=== PATIENT | female | born 1950 | race Caucasian/White ===

== ENCOUNTER 2016-11-07 23:43 | Inpatient (IN) | payer MEDICARE, OTHER ==
--- NOTE | 2016-11-07 23:55 | ED Physician Chart ---
Chief Complaint/HPI - Patient Information Date Seen:: 11/07/16 Time Seen:: 23:50 Chief Complaint:: agression History of Present Illness:: OR pt of Dr Carbone sent over for Dr Gallardo to admit medically for concern of Alteration in mental status and increased agitation and combative and ceaseless pacing at OR. no known recent fever or illness. no acute pain. no trauma recently. dementia pt. ...pt cant provide med history. pt was given 2mg ativan at 7;45 without much improvement Allergies:: Allergies Allergy/AdvReac Type Severity Reaction Status Date / Time No Known Allergies Allergy Verified 08/29/16 13:45 Historian:: Patient, Medical Records Review:: Transfer documents Reviewed Review of Systems - Review of Systems General/Constitutional: No fever, No chills, No weight loss, No weakness, No diaphoresis, No edema, No loss of appetite Skin: No skin lesions, No rash, No bruising Head: No headache, No light-headedness Eyes: No loss of vision, No pain, No diplopia ENT: No earache, No nasal drainage, No sore throat, No tinnitus Neck: No neck pain, No swelling, No thyromegaly, No stiffness, No mass noted Cardio Vascular: No chest pain, No palpitations, No PND, No orthopnea, No edema Pulmonary: No SOB, No cough, No sputum, No wheezing GI: No nausea, No vomiting, No diarrhea, No pain, No melena, No hematochezia, No constipation, No hematemesis G/U: No dysuria, No frequency, No hematuria Musculoskeletal: No bone or joint pain, No back pain, No muscle pain Endocrine: No polyuria, No polydipsia Psychiatric: Prior psych history, No depression, Anxiety, No suicidal ideation, Other (agitation) Hematopoietic: No bruising, No lymphadenopathy Allergic/Immuno: No urticaria, No angioedema Neurological: No syncope, No focal symptoms, No weakness, No paresthesia, No headache, No seizure, No dizziness, No confusion, No vertigo Past Medical History - Past Medical History Past Medical History: HTN, Asthma/COPD, Arthritis, Dementia, Other (anemia, dysphagia, constipation) Social History: Care Facility Medication: Reviewed Family Medical History - Family Member Sister History Unknown: Yes Physical Exam - Physical Examination General/Constitutional: Awake, Well-developed, well-nourished, Alert, No distress, Non-toxic appearing, Ambulatory Other Gen/Cons comments:: thin female..seems agitated/jumpy. has trouble staying still. pt seems threatening during exam. wn/wh. alert. poor historian. Head: Atraumatic Eyes: Lids, conjuctiva normal, PERRL, EOMI Skin: Nl inspection, No rash, No skin lesions, No ecchymosis, Well hydrated, No lymphadenopathy ENMT: External ears, nose nl, Nasal exam nl, Lips, teeth, gums nl Neck: Nontender, Full ROM w/o pain, No JVD, No nuchal rigidity, No bruit, No mass, No stridor Respiratory: Nl effort/Exclusion, Clear to Auscultation, No Wheeze/Rhonchi/Rales Cardio Vascular: RRR, No murmur, gallop, rubs, NL S1 S2 GI: No tenderness/rebounding/guarding, No organomegaly, No hernia, Normal BS's, Nondistended, No mass/bruits, No McBurney tenderness : No CVA tenderness Extremities: No tenderness or effusion, Full ROM, normal strength in all extremities, No edema, Normal digits & nails Neuro/Psych: Alert/oriented, DTR's symmetric, Normal sensory exam, Normal motor strength, Normal gait, No focal deficits Misc: normal gait, Normal back, No paraspinal tenderness ED Septic Shock - . Is Septic Shock (SBP<90, OR Lactate>4 mmol\L) present?: No Reassessment (Disposition) - Reassessment Reassessment:: pt is currently refusing to allow lab draw and studies to be performed. case dw Dr Gallardo who is admitting for alt loc. Reassessment Condition:: Unchanged - Diagnosis Diagnosis:: aloc difficult aggressive behavior - Patient Disposition Admitted to:: Med/Surg Condition at Disposition:: Unchanged
[2016-11-08] MEDS ORDERED: Albuterol/Ipratropium Neb 3 ML AERS HHN PRN (00:13)
[2016-11-08] MEDS ORDERED: guaiFENesin 200 MG/10 ML UDC PO PRN (00:13)
[2016-11-08] MEDS ORDERED: Maalox 30 mL Cup PO PRN ×2 (00:16→10:23)
[2016-11-08] MEDS: D5-0.45NS 1,000 ML IV SCH ×2 (01:00→11:34)
[2016-11-08 03:32] VITALS: BP 105/51
[2016-11-08] MEDS ORDERED: Maalox 30 mL Cup PO SCH (06:00)
[2016-11-08] MEDS ORDERED: VTE Chemical Prophylaxis Screen/Admission MC PRN (11:00)
[2016-11-08 15:31] LABS: % BASOPHILS 0.8 % (0.0-2.0); % EOSINOPHILS 2.7 % (0.0-5.0); % LYMPHOCYTES 27.1 % (20.0-50.0); % MONOCYTES 8.5 % (2.0-10.0); % NEUTROPHILS 60.9 % (40.0-80.0); HEMOGLOBIN 11.3 gm/dL (11.7-15.5); MEAN CORPUSCULAR HEMOGLOBIN 27.6 pg (27.0-31.0); MEAN CORPUSCULAR HGB CONC 33.2 pg (28.0-36.0); MEAN PLATELET VOLUME 8.3 fl; PLATELET COUNT 277 Th/cmm (150-400); RED CELL DISTRIBUTION WIDTH 16.5 % (11.5-20.0)
[2016-11-08 15:32] LABS: WHITE BLOOD COUNT 8.2 Th/cmm (4.8-10.8)
[2016-11-08 15:41] LABS: ALKALINE PHOSPHATASE 41 U/L (34-104); ANION GAP 0.8 (7.0-16.0); BILIRUBIN,TOTAL 0.2 mg/dL (0.3-1.0); BUN - UREA NITROGEN 24 mg/dL (7-25); CALCIUM SERUM 8.7 mg/dL (8.6-10.3); CARBON DIOXIDE 27.9 mEq/L (21.0-31.0); CHLORIDE 109 mEq/L (98-107); CHOLESTEROL 130 mg/dL (<200); CREATININE - SERUM 0.5 mg/dL (0.6-1.2); GLUCOSE 84 mg/dL (70-105); POTASSIUM SERUM 3.7 mEq/L (3.5-5.1); SGOT 19 U/L (13-39); SGPT/ALT 7 U/L (7-52); SODIUM SERUM 134 mEq/L (136-145); TRIGLYCERIDES 58 mg/dL (<150)
--- NOTE | 2016-11-08 16:38 | Internal Medicine Prog Note ---
Internal Medicine Subjective - Subjective Service Date: 11/08/16 ([facility] [id number]) Internal Medicine Objective - Results Result Diagrams: 11/08/16 15:08 11/08/16 15:08 Recent Labs: Laboratory Last Values WBC 8.2 Th/cmm (4.8-10.8) D 11/08/16 15:08 RBC 4.10 Mil/cmm (3.80-5.10) 11/08/16 15:08 Hgb 11.3 gm/dL (11.7-15.5) L 11/08/16 15:08 Hct 34.0 % (35.0-45.0) L D 11/08/16 15:08 MCV 83.0 fl (81-100) 11/08/16 15:08 MCH 27.6 pg (27.0-31.0) 11/08/16 15:08 MCHC Differential 33.2 pg (28.0-36.0) 11/08/16 15:08 RDW 16.5 % (11.5-20.0) 11/08/16 15:08 Plt Count 277 Th/cmm (150-400) 11/08/16 15:08 MPV 8.3 fl 11/08/16 15:08 Neutrophils % 60.9 % (40.0-80.0) 11/08/16 15:08 Lymphocytes % 27.1 % (20.0-50.0) 11/08/16 15:08 Monocytes % 8.5 % (2.0-10.0) 11/08/16 15:08 Eosinophils % 2.7 % (0.0-5.0) 11/08/16 15:08 Basophils % 0.8 % (0.0-2.0) 11/08/16 15:08 Sodium 134 mEq/L (136-145) L 11/08/16 15:08 Potassium 3.7 mEq/L (3.5-5.1) 11/08/16 15:08 Chloride 109 mEq/L (98-107) H 11/08/16 15:08 Carbon Dioxide 27.9 mEq/L (21.0-31.0) 11/08/16 15:08 Anion Gap 0.8 (7.0-16.0) L 11/08/16 15:08 BUN 24 mg/dL (7-25) 11/08/16 15:08 Creatinine 0.5 mg/dL (0.6-1.2) L 11/08/16 15:08 Est GFR ( Amer) > 60.0 ml/min 11/08/16 15:08 Est GFR (Non-Af Amer) > 60.0 ml/min 11/08/16 15:08 BUN/Creatinine Ratio 48.0 11/08/16 15:08 Glucose 84 mg/dL (70-105) 11/08/16 15:08 Calcium 8.7 mg/dL (8.6-10.3) 11/08/16 15:08 Total Bilirubin 0.2 mg/dL (0.3-1.0) L 11/08/16 15:08 AST 19 U/L (13-39) 11/08/16 15:08 ALT 7 U/L (7-52) 11/08/16 15:08 Alkaline Phosphatase 41 U/L (34-104) 11/08/16 15:08 Total Protein 6.6 gm/dL (6.0-8.3) 11/08/16 15:08 Albumin 3.3 gm/dL (3.7-5.3) L 11/08/16 15:08 Globulin 3.3 gm/dL 11/08/16 15:08 Albumin/Globulin Ratio 1.0 (1.0-1.8) 11/08/16 15:08 Triglycerides 58 mg/dL (<150) 11/08/16 15:08 Cholesterol 130 mg/dL (<200) 11/08/16 15:08 LDL Cholesterol Direct 64 mg/dL (75-193) L 11/08/16 15:08 HDL Cholesterol 53 mg/dL (23-92) 11/08/16 15:08 TSH 0.78 uIU/ml (0.34-5.60) 11/08/16 15:08 - Physical Exam Vitals and I&O: Vital Signs Temp 98.0 F 11/08/16 01:30 Pulse 91 11/08/16 01:30 Resp 18 11/08/16 01:30 BP 105/51 11/08/16 03:31 Pulse Ox 95 11/08/16 01:30 Intake & Output 11/07/16 11/08/16 11/08/16 18:59 06:59 18:59 Weight (lbs) 141 lb 9.6 oz Active Medications: Current Medications Acetaminophen (Tylenol) 325 mg PO Q6HR PRN PRN Reason: Pain (Mild) Stop: 01/07/17 00:12 Al Hydrox/Mg Hydrox/Simethicone (Maalox) 30 ml PO Q6HR PRN PRN Reason: Abdominal Cramping Stop: 01/07/17 05:59 Albuterol/Ipratropium (Duoneb Neb) 3 ml HHN Q2HR PRN PRN Reason: Shortness of Breath Stop: 01/07/17 00:12 Divalproex Sodium (Depakote Sprinkle) 125 mg PO Q12HR KRAIG PRN Reason: Protocol Stop: 01/07/17 20:59 Guaifenesin (Robitussin) 100 mg PO Q4HR PRN PRN Reason: Cough Stop: 01/07/17 00:12 Lorazepam (Ativan) 1 mg PO BID PRN; Protocol PRN Reason: Anxiety Stop: 01/07/17 00:12 Last Admin: 11/08/16 13:00 Dose: 1 mg Quetiapine Fumarate (Seroquel) 25 mg PO BID KRAIG PRN Reason: Protocol Stop: 01/07/17 08:59 Last Admin: 11/08/16 13:00 Dose: 25 mg Zolpidem Tartrate (Ambien) 10 mg PO HS PRN PRN Reason: Insomnia Stop: 01/07/17 00:33 Internal Medicine Assmt/Plan - Assessment Assessment: increasing ALOC, increasing agitation
--- NOTE | 2016-11-08 18:28 | History & Physical ---
CHIEF COMPLAINT: Aggression. HISTORY OF PRESENT ILLNESS: This is a 66-year-old -[place] female who is a resident of [facility] who was brought here to [facility] for alteration in mental status and increased agitation and combativeness. The patient appeared to be medically clear. Upon examination, the patient is a poor historian, does not cooperate and answering questions. The patient is medically clear. The patient to be transferred to the Geropsych Unit. PAST MEDICAL HISTORY: Hypertension, asthma, arthritis, dementia. SOCIAL HISTORY: The patient resides at a senior care, requiring 24-hour nursing care. FAMILY HISTORY: Noncontributory. ALLERGIES: No drug allergies. REVIEW OF SYSTEMS: Unable to obtain, patient is uncooperative. PHYSICAL EXAMINATION: GENERAL: The patient is well developed, well nourished, in no apparent distress. VITAL SIGNS: Temperature 98.0, heart rate 91, blood pressure 105/51, respirations 18, O2 95%. HEENT: Normocephalic and atraumatic. NECK: Supple. No mass. LUNGS: Clear bilaterally upon auscultation. CARDIOVASCULAR: Regular rate and rhythm. No murmurs or gallops. SKIN: Intact, warm and dry to touch. ABDOMEN: Soft, nontender, nondistended. Positive bowel sounds in all 4 quadrants. LABORATORY DATA: WBC 8.2, H and H 11.3 and 34.0. Sodium 134, potassium 3.7, chloride 109, BUN 24, creatinine 0.5. ASSESSMENT: Increasing ALOC, increasing agitation, hyponatremia. PLAN: The patient is medically stable to be transferred to the Geropsych Unit. JOB# [id number]
--- NOTE | 2016-11-08 21:35 | Consultation ---
The patient was seen, chart reviewed, and discussed with staff. HISTORY OF PRESENT ILLNESS: The patient is a 66-year-old female with a history of chronic mental illness known to myself from treatment at the facility, now admitted to medical floor, has been restless, anxious, and agitated, talking to herself nonstop. The patient has been more confused. Mental status has been altered and changed from her baseline. PAST PSYCHIATRIC HISTORY: Chronic history of mental illness and schizoaffective disorder. PAST MEDICAL HISTORY: As per H and P. PSYCHOSOCIAL HISTORY: The patient resides at a senior living facility, requires complete care. MENTAL STATUS EXAMINATION: The patient was restless, internally preoccupied, oriented to person, not sure if she is oriented to place and she is not oriented to time. The patient is talking to herself nonstop. Her agitation is high. Insight is poor and judgment is impaired. ASSESSMENT: Schizoaffective disorder, psychotic phase. PLAN: We will add Depakote 125 mg p.o. b.i.d. We will continue Seroquel 25 mg p.o. b.i.d. The patient would benefit from psychiatric hospitalization given her agitation once medically cleared. Thank you for the consultation. JOB# [id number]
--- NOTE | 2016-11-08 23:50 | Admit Criteria Form ---
Admit Criteria Forms - Admit Criteria Diagnosis: HYPONATREMIA; HYPERNATREMIA; HYPOKALEMIA; HYPERKALEMIA; HYPOCALCEMIA; HYPERCALCEMIA Clinical Indications for Inpatient Care (Place 'X' for any and all applicable criteria): Ongoing inpatient care may be indicated for ANY ONE of the following [G](1)(2)(3 )(5): [X ]I. Hyponatremia with ANY ONE of the following: [ ]a) Sodium less than 130 mEq/L (mmol/L) (new) (6)(22) [ X]b) Sodium less than 135 mEq/L (mmol/L) with ANY ONE of the following: [ ]i) Severe medical etiology requiring inpatient management (eg, heart failure, hypovolemia) [X ]ii) Altered mental status [ ]iii) Seizures [ ]II. Hypernatremia with ANY ONE of the following: [ ]a) Sodium greater than 155 mEq/L (mmol/L) [ ]b) Sodium greater than 150 mEq/L (mmol/L) with ANY ONE of the following: [ ] i) Altered mental status [ ]ii) Seizures [ ]iii) Severe medical etiology (eg, hypovolemia, diabetes insipidus) [ ]iv) Severe weakness [ ]v) Severe medical etiology (eg, hemolysis, infection, drug overdose) [ ]III. Hypokalemia with ANY ONE of the following: [ ]a) Potassium less than 2.5 mEq/L (mmol/L) despite outpatient and emergency treatment [ ]b) Potassium less than 3.0 mEq/L (mmol/L) with ANY ONE of the following: [ ]i) Weakness [ ]ii) Cardiac abnormality (eg, arrhythmia, conduction disturbance) [ ]iii) Cardiac ischemia [ ]iv) Ileus [ ]v) Ongoing medical cause requiring inpatient management. ( e.g., acute renal wasting, SIADH) [ ]vi) Other severe symptoms [ ] IV. Hyperkalemia with ANY ONE of the following: [ ]a) Potassium greater than 6.5 mEq/L (mmol/L) [ ]b) Potassium greater than 5 mEq/L (mmol/L) with ANY ONE of the following: [ ]i) Severe ECG findings [H] [ ]ii) Acute worsening of renal failure (creatinine greater than 2.5 mg/dL (221 micromoles/L) or significant elevation for age and size) [ ] V. Hypocalcemia with ANY ONE of the following: [ ]a) Calcium less than 7 mg/dL (1.75 mmol/L) despite outpatient and emergency treatment(19) [ ]b) Calcium less than 8 mg/dL (2 mmol/L) with significant symptoms or findings; examples include: [ ]i) Cardiac abnormality (eg, arrhythmia or conduction disturbance) [ ]ii) Altered mental status [ ]iii) Seizures [ ]iv) Breathing difficulty [ ]v) Muscle spasms [ ]. Hypercalcemia with ANY ONE of the following: [ ]a) Calcium greater than 14 mg/dL (3.5 mmol/L) [ ]b) Calcium greater than 12 mg/dL (3 mmol/L) with ANY ONE of the following: [ ]i) Significant dehydration or hypovolemia as indicated by ANY ONE of the following(2): [ ]1. Clinically significant dehydration as indicated by ANY ONE of the following: [ ]A. Acute loss of weight from baseline (5% of body weight in adults, 9% in pediatric patients) [ ]B. Hemodynamic instability [ ]C. Acute renal failure [ ]D. Serum sodium greater than 150 mEq/L (mmol/L) [ ]2) Dehydration that is persistent indicated by ALL of the following: [ ]A. Oral rehydration therapy not tolerated or insufficient to adequately correct dehydration [ ]B. Appropriate intravenous treatment (eg, fluids ) does not readily correct dehydration ie, after 12 to 24 hours of treatment) [ ]ii) Significant symptoms or findings; examples include: [ ]1) Altered mental status [ ]2) Cardiac abnormality (eg, arrhythmia, conduction disturbance) [ ]3) Cardiac abnormality (eg, arrhythmia, conduction disturbance) The original [employer] content created by [employer] has been revised. The portions of the content which have been revised are identified through the use of italic text or in bold, and [facility] has neither reviewed nor approved the modified material. All other unmodified content is copyright [facility] [employer] Please see references footnoted in the original [employer] edition 2016 Admit Criteria Met?: Yes
[2016-11-09] MEDS ORDERED: Haloperidol Lactate 5 mg/mL 1mL Vial IM PRN (09:54)
[2016-11-09 12:15] LABS: HEP B CORE IGM Negative (Negative); HEP C ANTIBODY <0.1 s/co ratio (0.0-0.9)
--- NOTE | 2016-11-09 12:55 | Internal Medicine Prog Note ---
Internal Medicine Subjective - Subjective Service Date: 11/09/16 Patient seen and examined:: with staff Patient is:: awake Per staff patient is:: no adverse event Internal Medicine Objective - Results Result Diagrams: 11/08/16 15:08 11/08/16 15:08 Recent Labs: Laboratory Last Values WBC 8.2 Th/cmm (4.8-10.8) D 11/08/16 15:08 RBC 4.10 Mil/cmm (3.80-5.10) 11/08/16 15:08 Hgb 11.3 gm/dL (11.7-15.5) L 11/08/16 15:08 Hct 34.0 % (35.0-45.0) L D 11/08/16 15:08 MCV 83.0 fl (81-100) 11/08/16 15:08 MCH 27.6 pg (27.0-31.0) 11/08/16 15:08 MCHC Differential 33.2 pg (28.0-36.0) 11/08/16 15:08 RDW 16.5 % (11.5-20.0) 11/08/16 15:08 Plt Count 277 Th/cmm (150-400) 11/08/16 15:08 MPV 8.3 fl 11/08/16 15:08 Neutrophils % 60.9 % (40.0-80.0) 11/08/16 15:08 Lymphocytes % 27.1 % (20.0-50.0) 11/08/16 15:08 Monocytes % 8.5 % (2.0-10.0) 11/08/16 15:08 Eosinophils % 2.7 % (0.0-5.0) 11/08/16 15:08 Basophils % 0.8 % (0.0-2.0) 11/08/16 15:08 Sodium 134 mEq/L (136-145) L 11/08/16 15:08 Potassium 3.7 mEq/L (3.5-5.1) 11/08/16 15:08 Chloride 109 mEq/L (98-107) H 11/08/16 15:08 Carbon Dioxide 27.9 mEq/L (21.0-31.0) 11/08/16 15:08 Anion Gap 0.8 (7.0-16.0) L 11/08/16 15:08 BUN 24 mg/dL (7-25) 11/08/16 15:08 Creatinine 0.5 mg/dL (0.6-1.2) L 11/08/16 15:08 Est GFR ( Amer) > 60.0 ml/min 11/08/16 15:08 Est GFR (Non-Af Amer) > 60.0 ml/min 11/08/16 15:08 BUN/Creatinine Ratio 48.0 11/08/16 15:08 Glucose 84 mg/dL (70-105) 11/08/16 15:08 Calcium 8.7 mg/dL (8.6-10.3) 11/08/16 15:08 Total Bilirubin 0.2 mg/dL (0.3-1.0) L 11/08/16 15:08 AST 19 U/L (13-39) 11/08/16 15:08 ALT 7 U/L (7-52) 11/08/16 15:08 Alkaline Phosphatase 41 U/L (34-104) 11/08/16 15:08 Total Protein 6.6 gm/dL (6.0-8.3) 11/08/16 15:08 Albumin 3.3 gm/dL (3.7-5.3) L 11/08/16 15:08 Globulin 3.3 gm/dL 11/08/16 15:08 Albumin/Globulin Ratio 1.0 (1.0-1.8) 11/08/16 15:08 Triglycerides 58 mg/dL (<150) 11/08/16 15:08 Cholesterol 130 mg/dL (<200) 11/08/16 15:08 LDL Cholesterol Direct 64 mg/dL (75-193) L 11/08/16 15:08 HDL Cholesterol 53 mg/dL (23-92) 11/08/16 15:08 TSH 0.78 uIU/ml (0.34-5.60) 11/08/16 15:08 RPR NONREACTIVE (NONREACTIVE) 11/08/16 15:08 Hepatitis A IgM Ab Negative (Negative) 11/08/16 15:08 Hep Bs Antigen Negative (Negative) 11/08/16 15:08 Hep B Core IgM Ab Negative (Negative) 11/08/16 15:08 Hepatitis C Antibody <0.1 s/co ratio (0.0-0.9) 11/08/16 15:08 - Physical Exam Vitals and I&O: Vital Signs Temp 98.0 F 11/08/16 01:30 Pulse 91 11/08/16 01:30 Resp 20 11/09/16 08:00 BP 105/51 11/08/16 03:31 Pulse Ox 95 11/08/16 01:30 Intake & Output 11/08/16 11/09/16 11/09/16 18:59 06:59 18:59 Intake Total 920 Balance 920 Intake: Oral 920 Other: # Voids 2 # Bowel Movements 0 Active Medications: Current Medications Acetaminophen (Tylenol) 325 mg PO Q6HR PRN PRN Reason: Pain (Mild) Stop: 01/07/17 00:12 Last Admin: 11/09/16 02:46 Dose: 325 mg Al Hydrox/Mg Hydrox/Simethicone (Maalox) 30 ml PO Q6HR PRN PRN Reason: Abdominal Cramping Stop: 01/07/17 05:59 Albuterol/Ipratropium (Duoneb Neb) 3 ml HHN Q2HR PRN PRN Reason: Shortness of Breath Stop: 01/07/17 00:12 Divalproex Sodium (Depakote Sprinkle) 125 mg PO Q12HR [facility] PRN Reason: Protocol Stop: 01/07/17 20:59 Last Admin: 11/09/16 09:09 Dose: Not Given Guaifenesin (Robitussin) 100 mg PO Q4HR PRN PRN Reason: Cough Stop: 01/07/17 00:12 Haloperidol Lactate (Haldol) 5 mg IM NOW PRN PRN Reason: Agitation Stop: 01/08/17 09:53 Last Admin: 11/09/16 10:30 Dose: 5 mg Lorazepam (Ativan) 1 mg PO BID PRN; Protocol PRN Reason: Anxiety Stop: 01/07/17 00:12 Last Admin: 11/08/16 20:57 Dose: 1 mg Lorazepam (Ativan) 1 mg PO Q6HR PRN; Protocol PRN Reason: Agitation Stop: 01/08/17 03:36 Last Admin: 11/09/16 04:18 Dose: 1 mg Quetiapine Fumarate (Seroquel) 50 mg PO BID [facility] PRN Reason: Protocol Stop: 01/08/17 12:15 Zolpidem Tartrate (Ambien) 10 mg PO HS PRN PRN Reason: Insomnia Stop: 01/07/17 00:33 Last Admin: 11/08/16 20:57 Dose: 10 mg General: alert HEENT: NC/AT, PERRLA Neck: Supple Lungs: CTAB Cardiovascular: RRR, Normal S1, Normal S2, without murmur Abdomen: soft non-tender, non-distended, positive bowel sound Neurological: no change Internal Medicine Assmt/Plan - Assessment Assessment: increasing ALOC increasing agitation - Plan Plan: awaiting for bed availability in [facility] psych
== END 2016-11-09 15:38 | DRG 641 ==
LOC: ER 23:43 → MSI 11-08 00:05
PROVIDERS: ADMIT Internal Medicine; ATTEND Internal Medicine
DX: E87.1 Hypo-osmolality and hyponatremia (principal); F03.90 Unspecified dementia, unspecified severity, without behavioral disturbance, psychotic disturbance, mood disturbance, and anxiety; R13.10 Dysphagia, unspecified; I10 Essential (primary) hypertension; J45.909 Unspecified asthma, uncomplicated; M19.90 Unspecified osteoarthritis, unspecified site; F25.9 Schizoaffective disorder, unspecified
CPT/HCPCS: 36415-UA; 80053-TC; 80061-TC; 80074-90; 84443-TC; 85025-TC; 86592-TC; 93005; J1200; J1630; J2060; Z7610

== ENCOUNTER 2016-11-09 15:38 | Inpatient (IN) | payer MEDICARE, OTHER ==
[2016-11-09 20:13] VITALS: BP 105/51
[2016-11-09] MEDS ORDERED: guaiFENesin 200 MG/10 ML UDC PO PRN ×2 (21:18→21:22)
[2016-11-09] MEDS ORDERED: Albuterol/Ipratropium Neb 3 ML AERS HHN PRN (21:18)
[2016-11-09] MEDS ORDERED: Magnesium Hydroxide (MOM) 30 mL UDC PO PRN (21:22)
[2016-11-09] MEDS ORDERED: Maalox 30 mL Cup PO PRN (21:22)
[2016-11-10] MEDS ORDERED: Maalox 30 mL Cup PO SCH
[2016-11-10] MEDS: Multivitamin Tab PO SCH (08:02)
--- NOTE | 2016-11-10 11:16 | Internal Medicine Prog Note ---
Internal Medicine Subjective - Subjective Patient seen and examined:: with staff, chart reviewed Patient is:: awake, interactive Per staff patient is:: no adverse event, noncompliant, confused Internal Medicine Objective - Physical Exam Vitals and I&O: Vital Signs Temp Pulse Resp BP 105/51 11/09/16 21:00 Pulse Ox Active Medications: Current Medications Acetaminophen (Tylenol) 650 mg PO Q4HR PRN PRN Reason: Pain (Mild) Stop: 01/08/17 21:21 Al Hydrox/Mg Hydrox/Simethicone (Maalox) 30 ml PO Q6HR PRN PRN Reason: Constipation Stop: 01/08/17 21:21 Albuterol/Ipratropium (Duoneb Neb) 3 ml HHN Q2HR PRN PRN Reason: Shortness of Breath Stop: 01/08/17 21:17 Guaifenesin (Robitussin) 200 mg PO Q4HR PRN PRN Reason: Cough or Congestion Stop: 01/08/17 21:21 Lorazepam (Ativan) 1 mg PO BID PRN; Protocol PRN Reason: Anxiety Stop: 01/08/17 21:17 Multivitamins/Vitamin C (Theragran) 1 tab PO DAILY [facility]RAIG Stop: 01/09/17 08:59 Last Admin: 11/10/16 08:02 Dose: Not Given Quetiapine Fumarate (Seroquel) 25 mg PO BID [facility] PRN Reason: Protocol Stop: 01/09/17 08:59 Last Admin: 11/10/16 08:02 Dose: Not Given Zolpidem Tartrate (Ambien) 10 mg PO HS PRN PRN Reason: Insomnia General: demented HEENT: NC/AT, PERRLA Neck: Supple, No JVD Lungs: CTAB Cardiovascular: RRR, Normal S1, Normal S2 Abdomen: soft non-tender, globular Extremities: excoriation Neurological: no change Internal Medicine Assmt/Plan - Assessment Assessment: inc agitation anemia sad hyponatremia' low albumin - Plan Plan: nutritional support correct lyrtes will check labs jordi blum
--- NOTE | 2016-11-10 23:31 | Psychosocial Evaluation ---
CHIEF COMPLAINT: "I am fine". HISTORY OF PRESENT ILLNESS: The patient is a 66-year-old female with a history of chronic mental illness ____ angry and irritable, sent from senior living to this facility with altered level of consciousness, was on medical floor, now transferred to [facility]. The patient has been restless and angry and was screaming nonstop. The patient is a very poor historian. The patient required being given emergency medications and her Seroquel was just increased to 50 mg p.o. b.i.d. PAST PSYCHIATRIC HISTORY: Multiple psychiatric hospitalization and chronic history of schizoaffective disorder. PAST MEDICAL HISTORY: Refer to H and P. PSYCHOSOCIAL HISTORY: The patient resides at [facility] and she requires complete care. MENTAL STATUS EXAMINATION: The patient has been internally preoccupied because is having episodes of ____ around and difficult to comprehend. She is oriented to person. She is not oriented to time or place. The patient is forgetful and confused. The patient's insight is poor and judgment is impaired. The patient appears to be responding to internal stimuli and actively hallucinating. THE PATIENT'S STRENGTH: The patient is passively accepting treatment and medication. THE PATIENT'S WEAKNESS: Lack of insight. ASSESSMENT: Schizoaffective disorder, psychotic phase, rule out dementia Alzheimer's type. Medical, as per medical history. PLAN: We will admit the patient for hospitalization. We will start individual and group therapy. Assess psychopharmacological intervention. ESTIMATED LENGTH OF STAY: Seven days. CRITERIA FOR DISCHARGE: Improved condition. No agitation, no aggressive behavior, safe disposition and outpatient treatment plan. JOB# [id number]
--- NOTE | 2016-11-11 12:12 | Internal Medicine Prog Note ---
Internal Medicine Subjective - Subjective Patient seen and examined:: with staff, chart reviewed Patient is:: interactive Per staff patient is:: no adverse event, noncompliant, confused Internal Medicine Objective - Physical Exam Vitals and I&O: Vital Signs Temp 97.9 F 11/10/16 15:44 Pulse 108 11/10/16 15:44 Resp 18 11/10/16 15:44 BP 128/68 11/10/16 15:44 Pulse Ox 97 11/10/16 15:44 Intake & Output 11/10/16 11/11/16 11/11/16 18:59 06:59 18:59 Intake Total 760 240 Balance 760 240 Intake: Oral 760 240 Other: # Voids 2 1 # Bowel Movements 1 Stool Characteristics Soft Soft Formed Formed Active Medications: Current Medications Acetaminophen (Tylenol) 650 mg PO Q4HR PRN PRN Reason: Pain (Mild) Stop: 01/08/17 21:21 Al Hydrox/Mg Hydrox/Simethicone (Maalox) 30 ml PO Q6HR PRN PRN Reason: Constipation Stop: 01/08/17 21:21 Albuterol/Ipratropium (Duoneb Neb) 3 ml HHN Q2HR PRN PRN Reason: Shortness of Breath Stop: 01/08/17 21:17 Guaifenesin (Robitussin) 200 mg PO Q4HR PRN PRN Reason: Cough or Congestion Stop: 01/08/17 21:21 Lorazepam (Ativan) 1 mg PO BID PRN; Protocol PRN Reason: Anxiety Stop: 01/08/17 21:17 Multivitamins/Vitamin C (Theragran) 1 tab PO DAILY KRAIG Stop: 01/09/17 08:59 Last Admin: 11/10/16 08:02 Dose: Not Given Quetiapine Fumarate (Seroquel) 25 mg PO BID [facility] PRN Reason: Protocol Stop: 01/09/17 08:59 Last Admin: 11/10/16 16:30 Dose: Not Given Zolpidem Tartrate (Ambien) 10 mg PO HS PRN PRN Reason: Insomnia General: demented HEENT: NC/AT, PERRLA Neck: Supple, No JVD Lungs: CTAB Cardiovascular: RRR, Normal S1, Normal S2 Abdomen: soft non-tender, non-distended Extremities: excoriation Neurological: no change Internal Medicine Assmt/Plan - Assessment Assessment: inc agitation anemia sad hyponatremia' low albumin - Plan Plan: nutritional support correct lyrtes will check labs jordi blum
[2016-11-11] MEDS: Multivitamin Tab PO SCH (16:47)
--- NOTE | 2016-11-11 23:24 | Progress Notes ---
SUBJECTIVE: The patient was seen, discussed with staff. Less yelling, less irritable today. Actually, she was sitting in her wheelchair and she was wheeling herself around the unit. The patient, however, continues to have episodes where she is talking to herself. The patient is still with episodes of agitation. ASSESSMENT: The patient continues to require hospitalization. PLAN: We will continue to monitor closely, continue supportive measures. [facility]# [id number]
--- NOTE | 2016-11-12 13:38 | Internal Medicine Prog Note ---
Internal Medicine Subjective - Subjective Service Date: 11/12/16 Patient seen and examined:: with staff Patient is:: awake Per staff patient is:: no adverse event Internal Medicine Objective - Physical Exam Vitals and I&O: Vital Signs Temp 0 F 11/12/16 06:07 Pulse 108 11/10/16 15:44 Resp 18 11/10/16 15:44 BP 128/68 11/10/16 15:44 Pulse Ox 97 11/10/16 15:44 Intake & Output 11/11/16 11/12/16 11/12/16 18:59 06:59 18:59 Intake Total 800 240 Balance 800 240 Intake: Oral 800 240 Other: # Voids 3 3 # Bowel Movements 1 0 Stool Characteristics Soft Soft Soft Formed Formed Formed Active Medications: Current Medications Acetaminophen (Tylenol) 650 mg PO Q4HR PRN PRN Reason: Pain (Mild) Stop: 01/08/17 21:21 Al Hydrox/Mg Hydrox/Simethicone (Maalox) 30 ml PO Q6HR PRN PRN Reason: Constipation Stop: 01/08/17 21:21 Albuterol/Ipratropium (Duoneb Neb) 3 ml HHN Q2HR PRN PRN Reason: Shortness of Breath Stop: 01/08/17 21:17 Guaifenesin (Robitussin) 200 mg PO Q4HR PRN PRN Reason: Cough or Congestion Stop: 01/08/17 21:21 Lorazepam (Ativan) 1 mg PO BID PRN; Protocol PRN Reason: Anxiety Stop: 01/08/17 21:17 Multivitamins/Vitamin C (Theragran) 1 tab PO DAILY KRAIG Stop: 01/09/17 08:59 Last Admin: 11/11/16 16:47 Dose: Not Given Quetiapine Fumarate (Seroquel) 25 mg PO BID KRAIG PRN Reason: Protocol Stop: 01/09/17 08:59 Last Admin: 11/11/16 16:47 Dose: Not Given Zolpidem Tartrate (Ambien) 10 mg PO HS PRN PRN Reason: Insomnia General: alert HEENT: NC/AT, PERRLA Neck: Supple Lungs: CTAB Cardiovascular: RRR, Normal S1, Normal S2, without murmur Abdomen: soft non-tender, non-distended Extremities: clear Internal Medicine Assmt/Plan - Assessment Assessment: inc agitation anemia sad hyponatremia low albumin - Plan Plan: fall precautions continue current medications cpm
[2016-11-12] MEDS: Multivitamin Tab PO SCH (18:43)
--- NOTE | 2016-11-13 05:04 | Progress Notes ---
SUBJECTIVE: The patient was seen, discussed with staff, chart reviewed. Still restless, confused, talking to herself, some agitation and irritable at times, still with episodes of refusing care. The patient on the other hand has better appetite and she received Haldol Decanoate couple of days ago and so far she has no side effects. ASSESSMENT: The patient is still in psychotic phase. PLAN: We will continue hospitalization. Continue medication management. Continue supportive measures. Monitor mood closely. [facility]# [id number]
[2016-11-13] MEDS: Multivitamin Tab PO SCH (10:45)
--- NOTE | 2016-11-13 14:38 | Internal Medicine Prog Note ---
Internal Medicine Subjective - Subjective Patient seen and examined:: with staff, chart reviewed Patient is:: awake, verbal, interactive Per staff patient is:: no adverse event, noncompliant, confused Internal Medicine Objective - Physical Exam Vitals and I&O: Vital Signs Temp 0 F 11/13/16 05:59 Pulse 108 11/10/16 15:44 Resp 20 11/12/16 20:00 BP 128/68 11/10/16 15:44 Pulse Ox 97 11/10/16 15:44 Intake & Output 11/12/16 11/13/16 11/13/16 18:59 06:59 18:59 Intake Total 950 240 Output Total 1 Balance 949 240 Intake: Oral 950 240 Output: Urine/Stool Mix 1 Other: # Voids 2 2 # Bowel Movements 0 Stool Characteristics Soft Soft Formed Formed Active Medications: Current Medications Acetaminophen (Tylenol) 650 mg PO Q4HR PRN PRN Reason: Pain (Mild) Stop: 01/08/17 21:21 Al Hydrox/Mg Hydrox/Simethicone (Maalox) 30 ml PO Q6HR PRN PRN Reason: Constipation Stop: 01/08/17 21:21 Albuterol/Ipratropium (Duoneb Neb) 3 ml HHN Q2HR PRN PRN Reason: Shortness of Breath Stop: 01/08/17 21:17 Guaifenesin (Robitussin) 200 mg PO Q4HR PRN PRN Reason: Cough or Congestion Stop: 01/08/17 21:21 Lorazepam (Ativan) 1 mg PO BID PRN; Protocol PRN Reason: Anxiety Stop: 01/08/17 21:17 Last Admin: 11/12/16 22:14 Dose: 1 mg Multivitamins/Vitamin C (Theragran) 1 tab PO DAILY KRAIG Stop: 01/09/17 08:59 Last Admin: 11/13/16 10:45 Dose: Not Given Quetiapine Fumarate (Seroquel) 50 mg PO BID KRAIG PRN Reason: Protocol Stop: 01/12/17 13:14 Zolpidem Tartrate (Ambien) 10 mg PO HS PRN PRN Reason: Insomnia General: demented HEENT: NC/AT, PERRLA Neck: Supple, No JVD Lungs: CTAB Cardiovascular: RRR, Normal S1, Normal S2 Abdomen: soft non-tender, globular Extremities: excoriation Neurological: no change Internal Medicine Assmt/Plan - Assessment Assessment: inc agitation anemia sad hyponatremia' low albumin - Plan Plan: nutritional support correct lyrtes will check labs jordi blum
--- NOTE | 2016-11-14 00:36 | Progress Notes ---
SUBJECTIVE: The patient was seen, discussed with staff. Still disorganized, anxious, still talking to herself, still easily agitated, has poor insight and poor judgment and at times refusing care. ASSESSMENT: The patient is in psychotic phase. PLAN: We will increase Seroquel to 50 mg p.o. b.i.d. Encourage the patient to comply with medication and treatment recommendations. The patient received Haldol Decanoate to help improve compliance. JOB# [id number]
[2016-11-14] MEDS: Multivitamin Tab PO SCH (09:54)
--- NOTE | 2016-11-14 13:20 | Internal Medicine Prog Note ---
Internal Medicine Subjective - Subjective Service Date: 11/14/16 Patient seen and examined:: with staff Patient is:: awake Per staff patient is:: no adverse event Internal Medicine Objective - Physical Exam Vitals and I&O: Vital Signs Temp 0 F 11/14/16 06:13 Pulse 108 11/10/16 15:44 Resp 20 11/13/16 21:33 BP 128/68 11/10/16 15:44 Pulse Ox 97 11/10/16 15:44 Intake & Output 11/13/16 11/14/16 11/14/16 18:59 06:59 18:59 Intake Total 1300 120 Balance 1300 120 Intake: Oral 1300 120 Other: # Voids 6 3 # Bowel Movements 1 0 Stool Characteristics Soft Formed Active Medications: Current Medications Acetaminophen (Tylenol) 650 mg PO Q4HR PRN PRN Reason: Pain (Mild) Stop: 01/08/17 21:21 Al Hydrox/Mg Hydrox/Simethicone (Maalox) 30 ml PO Q6HR PRN PRN Reason: Constipation Stop: 01/08/17 21:21 Albuterol/Ipratropium (Duoneb Neb) 3 ml HHN Q2HR PRN PRN Reason: Shortness of Breath Stop: 01/08/17 21:17 Guaifenesin (Robitussin) 200 mg PO Q4HR PRN PRN Reason: Cough or Congestion Stop: 01/08/17 21:21 Lorazepam (Ativan) 1 mg PO BID PRN; Protocol PRN Reason: Anxiety Stop: 01/08/17 21:17 Last Admin: 11/12/16 22:14 Dose: 1 mg Multivitamins/Vitamin C (Theragran) 1 tab PO DAILY KRAIG Stop: 01/09/17 08:59 Last Admin: 11/14/16 09:54 Dose: Not Given Quetiapine Fumarate (Seroquel) 50 mg PO BID KRAIG PRN Reason: Protocol Stop: 01/12/17 13:14 Last Admin: 11/14/16 09:54 Dose: Not Given Zolpidem Tartrate (Ambien) 10 mg PO HS PRN PRN Reason: Insomnia General: alert HEENT: NC/AT, PERRLA Neck: Supple Lungs: CTAB Cardiovascular: RRR, Normal S1, Normal S2, without murmur Abdomen: soft non-tender, non-distended, positive bowel sound Extremities: clear Neurological: no change Internal Medicine Assmt/Plan - Assessment Assessment: inc agitation anemia sad hyponatremia low albumin - Plan Plan: fall precautions continue current medications cpm
[2016-11-14] MEDS ORDERED: risperiDONE 1 mg/mL 30 mL Bottle PO SCH (17:00)
[2016-11-14] MEDS ORDERED: risperiDONE 1 mg/mL 30 mL Bottle PO ONE (17:00)
--- NOTE | 2016-11-15 05:17 | Progress Notes ---
SUBJECTIVE: The patient was seen, discussed with staff and chart reviewed. She remains disorganized, paranoid, restless and talking to herself. The patient, however, is eating better and her sleep has been fair. She continues to refuse medications for no apparent reason. ASSESSMENT: The patient is still in psychotic phase. PLAN: We will continue stabilization. Continue supportive measures. We will use risperidone 1 mg suspension liquid form. [facility]# [id number]
[2016-11-15] MEDS: Multivitamin Tab PO SCH (10:52)
--- NOTE | 2016-11-15 14:51 | Internal Medicine Prog Note ---
Internal Medicine Subjective - Subjective Patient seen and examined:: with staff, chart reviewed Patient is:: awake, interactive Per staff patient is:: no adverse event, noncompliant Internal Medicine Objective - Physical Exam Vitals and I&O: Vital Signs Temp 0 F 11/14/16 06:13 Pulse 108 11/10/16 15:44 Resp 20 11/13/16 21:33 BP 128/68 11/10/16 15:44 Pulse Ox 97 11/10/16 15:44 Intake & Output 11/14/16 11/15/16 11/15/16 18:59 06:59 18:59 Intake Total 1000 Balance 1000 Intake: Oral 1000 Other: # Voids 4 Active Medications: Current Medications Acetaminophen (Tylenol) 650 mg PO Q4HR PRN PRN Reason: Pain (Mild) Stop: 01/08/17 21:21 Al Hydrox/Mg Hydrox/Simethicone (Maalox) 30 ml PO Q6HR PRN PRN Reason: Constipation Stop: 01/08/17 21:21 Albuterol/Ipratropium (Duoneb Neb) 3 ml HHN Q2HR PRN PRN Reason: Shortness of Breath Stop: 01/08/17 21:17 Guaifenesin (Robitussin) 200 mg PO Q4HR PRN PRN Reason: Cough or Congestion Stop: 01/08/17 21:21 Lorazepam (Ativan) 1 mg PO BID PRN; Protocol PRN Reason: Anxiety Stop: 01/08/17 21:17 Last Admin: 11/15/16 10:51 Dose: 1 mg Multivitamins/Vitamin C (Theragran) 1 tab PO DAILY KRAIG Stop: 01/09/17 08:59 Last Admin: 11/15/16 10:52 Dose: Not Given Quetiapine Fumarate (Seroquel) 50 mg PO BID KRAIG PRN Reason: Protocol Stop: 01/12/17 13:14 Last Admin: 11/15/16 10:52 Dose: Not Given Risperidone (Risperdal) 1.5 mg PO 1700 KRAIG PRN Reason: Protocol Stop: 01/14/17 16:59 Zolpidem Tartrate (Ambien) 10 mg PO HS PRN PRN Reason: Insomnia HEENT: NC/AT, PERRLA Neck: Supple, No JVD Lungs: CTAB Cardiovascular: RRR, Normal S1, Normal S2 Abdomen: soft non-tender Extremities: excoriation Neurological: no change Internal Medicine Assmt/Plan - Assessment Assessment: inc agitation anemia sad hyponatremia' low albumin - Plan Plan: nutritional support correct lyrtes will check labs jordi blum
[2016-11-15] MEDS ORDERED: risperiDONE 1 mg/mL 30 mL Bottle PO SCH (17:00)
[2016-11-15] MEDS: risperiDONE 1 mg/mL 30 mL Bottle PO SCH (18:15)
--- NOTE | 2016-11-16 09:25 | Progress Notes ---
SUBJECTIVE: The patient was seen, discussed with staff, chart reviewed. Still disorganized, guarded, paranoid, still talking to herself. Insight is poor. Judgment remains impaired. Continues to have episodes of yelling. The patient was started on risperidone liquid, so far has no side effects. ASSESSMENT: The patient still in psychotic phase, highly disorganized. PLAN: We will increase risperidone to 1.5 mg p.o. daily. We will continue to monitor closely. JOB# [id number]
[2016-11-16] MEDS: Multivitamin Tab PO SCH (12:21)
--- NOTE | 2016-11-16 12:44 | Internal Medicine Prog Note ---
Internal Medicine Subjective - Subjective Service Date: 11/16/16 Patient seen and examined:: with staff Patient is:: awake Per staff patient is:: no adverse event Internal Medicine Objective - Physical Exam Vitals and I&O: Vital Signs Temp 98.0 F 11/15/16 14:00 Pulse 90 11/15/16 20:40 Resp 18 11/15/16 20:40 BP 146/63 11/15/16 14:00 Pulse Ox 95 11/15/16 20:40 Intake & Output 11/15/16 11/16/16 11/16/16 18:59 06:59 18:59 Intake Total 1000 Balance 1000 Intake: Oral 1000 Other: # Voids 3 2 # Bowel Movements 1 Active Medications: Current Medications Acetaminophen (Tylenol) 650 mg PO Q4HR PRN PRN Reason: Pain (Mild) Stop: 01/08/17 21:21 Al Hydrox/Mg Hydrox/Simethicone (Maalox) 30 ml PO Q6HR PRN PRN Reason: Constipation Stop: 01/08/17 21:21 Albuterol/Ipratropium (Duoneb Neb) 3 ml HHN Q2HR PRN PRN Reason: Shortness of Breath Stop: 01/08/17 21:17 Guaifenesin (Robitussin) 200 mg PO Q4HR PRN PRN Reason: Cough or Congestion Stop: 01/08/17 21:21 Lorazepam (Ativan) 1 mg PO Q4HR PRN; Protocol PRN Reason: Anxiety Stop: 01/14/17 15:59 Last Admin: 11/15/16 17:10 Dose: 1 mg Multivitamins/Vitamin C (Theragran) 1 tab PO DAILY KRAIG Stop: 01/09/17 08:59 Last Admin: 11/16/16 12:21 Dose: Not Given Quetiapine Fumarate (Seroquel) 50 mg PO BID KRAIG PRN Reason: Protocol Stop: 01/12/17 13:14 Last Admin: 11/16/16 12:21 Dose: Not Given Risperidone (Risperdal) 1.5 mg PO 1700 KRAIG PRN Reason: Protocol Stop: 01/14/17 16:59 Last Admin: 11/15/16 18:15 Dose: 1.5 mg Zolpidem Tartrate (Ambien) 10 mg PO HS PRN PRN Reason: Insomnia Last Admin: 11/15/16 23:18 Dose: 10 mg General: alert HEENT: NC/AT, PERRLA Neck: Supple Lungs: CTAB Cardiovascular: RRR, Normal S1, Normal S2, without murmur Abdomen: soft non-tender, non-distended Extremities: clear Internal Medicine Assmt/Plan - Assessment Assessment: inc agitation anemia sad hyponatremia low albumin - Plan Plan: fall precautions continue current medications cpm
[2016-11-16] MEDS: risperiDONE 1 mg/mL 30 mL Bottle PO SCH (17:37)
--- NOTE | 2016-11-17 07:19 | Progress Notes ---
SUBJECTIVE: The patient was seen. Remains paranoid, angry, and talking to herself nonstop. The patient's insight is poor. Judgment is impaired. Continues to have episodes of refusing care and refusing medications. Will use Haldol Decanoate to help improve compliance. PLAN: We will continue to monitor closely. Continue supportive measures. [facility]# [id number]
[2016-11-17] MEDS: Multivitamin Tab PO SCH (09:50)
[2016-11-17] MEDS: risperiDONE 1 mg/mL 30 mL Bottle PO SCH (18:35)
--- NOTE | 2016-11-18 07:31 | Progress Notes ---
PSYCHIATRIC PROGRESS NOTE TIME PATIENT SEEN: 10:15 a.m. SUBJECTIVE: Staff was spoken to. The patient is interviewed. Mood is noted to be irritable. Affect is constricted. The patient is still responding to the internal stimuli. Coping skills are noted to be very poor. Sleep and appetite are also noted to be poor. The patient since is not responding to one antidepressant medication, the patient has been placed both on Seroquel and Risperdal with a plan to slowly titrate these medications down to only one antipsychotic medication. The patient is at this time still responding to internal stimuli and is not able to contract for safety. PLAN: To continue the patient with the current medications. I encouraged the patient to verbalize the concerns rather than to act out. JOB# [id number]
--- NOTE | 2016-11-18 18:00 | Internal Medicine Prog Note ---
Internal Medicine Subjective - Subjective Service Date: 11/18/16 Patient seen and examined:: with staff Patient is:: awake Per staff patient is:: no adverse event Internal Medicine Objective - Physical Exam Vitals and I&O: Vital Signs Temp 97.1 F 11/16/16 15:51 Pulse 99 11/16/16 15:51 Resp 19 11/16/16 15:51 BP 117/91 11/16/16 15:51 Pulse Ox 98 11/16/16 15:51 Intake & Output 11/17/16 11/18/16 11/18/16 18:59 06:59 18:59 Intake Total 950 Balance 950 Intake: Oral 950 Other: # Voids 2 2 # Bowel Movements 1 Stool Characteristics Soft Formed Active Medications: Current Medications Acetaminophen (Tylenol) 650 mg PO Q4HR PRN PRN Reason: Pain (Mild) Stop: 01/08/17 21:21 Al Hydrox/Mg Hydrox/Simethicone (Maalox) 30 ml PO Q6HR PRN PRN Reason: Constipation Stop: 01/08/17 21:21 Albuterol/Ipratropium (Duoneb Neb) 3 ml HHN Q2HR PRN PRN Reason: Shortness of Breath Stop: 01/08/17 21:17 Guaifenesin (Robitussin) 200 mg PO Q4HR PRN PRN Reason: Cough or Congestion Stop: 01/08/17 21:21 Lorazepam (Ativan) 1 mg PO Q4HR PRN; Protocol PRN Reason: Anxiety Stop: 01/14/17 15:59 Last Admin: 11/17/16 09:33 Dose: 1 mg Multivitamins/Vitamin C (Theragran) 1 tab PO DAILY KRAIG Stop: 01/09/17 08:59 Last Admin: 11/17/16 09:50 Dose: Not Given Quetiapine Fumarate (Seroquel) 50 mg PO BID KRAIG PRN Reason: Protocol Stop: 01/12/17 13:14 Last Admin: 11/17/16 17:30 Dose: 50 mg Risperidone (Risperdal) 1.5 mg PO 1700 KRAIG PRN Reason: Protocol Stop: 01/14/17 16:59 Last Admin: 11/17/16 18:35 Dose: 1.5 mg Zolpidem Tartrate (Ambien) 10 mg PO HS PRN PRN Reason: Insomnia Last Admin: 11/15/16 23:18 Dose: 10 mg General: alert HEENT: NC/AT, PERRLA Neck: Supple Lungs: CTAB Cardiovascular: RRR, Normal S1, Normal S2, without murmur Abdomen: soft non-tender Extremities: clear Internal Medicine Assmt/Plan - Assessment Assessment: inc agitation anemia sad hyponatremia low albumin - Plan Plan: fall precautions continue current medications cpm
[2016-11-18] MEDS: risperiDONE 1 mg/mL 30 mL Bottle PO SCH (18:35)
[2016-11-18] MEDS: Multivitamin Tab PO SCH (18:35)
--- NOTE | 2016-11-19 01:46 | Progress Notes ---
PSYCHIATRIC PROGRESS NOTE TIME PATIENT SEEN: 9:00 a.m. SUBJECTIVE: Staff was spoken to. The patient is interviewed. Mood is noted to be depressed. Affect is constricted. The patient is refusing to comply with the medications. Today insight and judgment are noted to be impaired. Impulse control seems to be poor. Coping skills are noted to be very poor. The patient is not responding to request to comply with the medications stating that she does not need any medications. The patient's coping skills are noted to be extremely poor at this time. ASSESSMENT: The patient is still psychotic. PLAN: To continue the patient with Seroquel on this ____ and follow up. JOB# [id number]
[2016-11-19] MEDS: Multivitamin Tab PO SCH (08:25)
--- NOTE | 2016-11-19 12:44 | Internal Medicine Prog Note ---
Internal Medicine Subjective - Subjective Service Date: 11/19/16 Patient seen and examined:: with staff Patient is:: awake Per staff patient is:: no adverse event Internal Medicine Objective - Physical Exam Vitals and I&O: Vital Signs Temp 97.9 F 11/18/16 20:50 Pulse 98 11/18/16 20:50 Resp 19 11/18/16 20:50 BP 144/77 11/18/16 20:50 Pulse Ox 98 11/18/16 20:50 Intake & Output 11/18/16 11/19/16 11/19/16 18:59 06:59 18:59 Intake Total 1000 120 Balance 1000 120 Intake: Oral 1000 120 Other: # Voids 3 3 # Bowel Movements 1 0 Stool Characteristics Soft Soft Formed Formed Active Medications: Current Medications Acetaminophen (Tylenol) 650 mg PO Q4HR PRN PRN Reason: Pain (Mild) Stop: 01/08/17 21:21 Al Hydrox/Mg Hydrox/Simethicone (Maalox) 30 ml PO Q6HR PRN PRN Reason: Constipation Stop: 01/08/17 21:21 Albuterol/Ipratropium (Duoneb Neb) 3 ml HHN Q2HR PRN PRN Reason: Shortness of Breath Stop: 01/08/17 21:17 Guaifenesin (Robitussin) 200 mg PO Q4HR PRN PRN Reason: Cough or Congestion Stop: 01/08/17 21:21 Lorazepam (Ativan) 1 mg PO Q4HR PRN; Protocol PRN Reason: Anxiety Stop: 01/14/17 15:59 Last Admin: 11/18/16 20:39 Dose: 1 mg Multivitamins/Vitamin C (Theragran) 1 tab PO DAILY KRAIG Stop: 01/09/17 08:59 Last Admin: 11/19/16 08:25 Dose: Not Given Quetiapine Fumarate (Seroquel) 50 mg PO BID KRAIG PRN Reason: Protocol Stop: 01/12/17 13:14 Last Admin: 11/19/16 08:25 Dose: Not Given Risperidone (Risperdal) 1.5 mg PO 1700 KRAIG PRN Reason: Protocol Stop: 01/14/17 16:59 Last Admin: 11/18/16 18:35 Dose: Not Given Zolpidem Tartrate (Ambien) 10 mg PO HS PRN PRN Reason: Insomnia Last Admin: 11/15/16 23:18 Dose: 10 mg General: alert HEENT: NC/AT, PERRLA Neck: Supple Lungs: CTAB Cardiovascular: RRR, Normal S1, Normal S2, without murmur Abdomen: soft non-tender Extremities: clear Internal Medicine Assmt/Plan - Assessment Assessment: inc agitation anemia sad hyponatremia low albumin - Plan Plan: fall precautions continue current medications cpm
[2016-11-19] MEDS: risperiDONE 1 mg/mL 30 mL Bottle PO SCH (16:45)
--- NOTE | 2016-11-20 06:18 | Progress Notes ---
SUBJECTIVE: The patient was seen, discussed with staff and chart reviewed. Still anxious, still guarded, paranoid, and irritable. The patient continues to have yelling episodes and episodes of refusing care. Her insight is poor and judgment is impaired. ASSESSMENT: The patient is still in psychotic phase. PLAN: We will continue stabilization. Continue supportive measures, continue to monitor closely and increase risperidone to 2 mg p.o. at bedtime. [facility]# [id number]
[2016-11-20] MEDS: Multivitamin Tab PO SCH (10:01)
--- NOTE | 2016-11-20 12:50 | Internal Medicine Prog Note ---
Internal Medicine Subjective - Subjective Service Date: 11/20/16 Patient seen and examined:: with staff Patient is:: awake Patient Complaints of:: congestion Per staff patient is:: no adverse event Internal Medicine Objective - Physical Exam Vitals and I&O: Vital Signs Temp 97.3 F 11/19/16 20:34 Pulse 81 11/19/16 20:34 Resp 19 11/19/16 20:34 BP 123/75 11/19/16 20:34 Pulse Ox 97 11/19/16 20:34 Intake & Output 11/19/16 11/20/16 11/20/16 18:59 06:59 18:59 Intake Total 700 120 Balance 700 120 Intake: Oral 700 120 Other: # Voids 3 1 # Bowel Movements 0 0 Stool Characteristics Soft Soft Formed Formed Active Medications: Current Medications Acetaminophen (Tylenol) 650 mg PO Q4HR PRN PRN Reason: Pain (Mild) Stop: 01/08/17 21:21 Al Hydrox/Mg Hydrox/Simethicone (Maalox) 30 ml PO Q6HR PRN PRN Reason: Constipation Stop: 01/08/17 21:21 Albuterol/Ipratropium (Duoneb Neb) 3 ml HHN Q2HR PRN PRN Reason: Shortness of Breath Stop: 01/08/17 21:17 Guaifenesin (Robitussin) 200 mg PO Q4HR PRN PRN Reason: Cough or Congestion Stop: 01/08/17 21:21 Lorazepam (Ativan) 1 mg PO Q4HR PRN; Protocol PRN Reason: Anxiety Stop: 01/14/17 15:59 Last Admin: 11/18/16 20:39 Dose: 1 mg Multivitamins/Vitamin C (Theragran) 1 tab PO DAILY KRAIG Stop: 01/09/17 08:59 Last Admin: 11/20/16 10:01 Dose: Not Given Quetiapine Fumarate (Seroquel) 50 mg PO BID KRAIG PRN Reason: Protocol Stop: 01/12/17 13:14 Last Admin: 11/20/16 10:01 Dose: Not Given Risperidone (Risperdal) 2 mg PO 1700 KRAIG PRN Reason: Protocol Stop: 01/18/17 13:36 Last Admin: 11/19/16 16:45 Dose: Not Given Zolpidem Tartrate (Ambien) 10 mg PO HS PRN PRN Reason: Insomnia Last Admin: 11/15/16 23:18 Dose: 10 mg General: alert HEENT: NC/AT, PERRLA Neck: Supple Lungs: CTAB Cardiovascular: RRR, Normal S1, Normal S2, without murmur Abdomen: soft non-tender, non-distended Extremities: clear Internal Medicine Assmt/Plan - Assessment Assessment: inc agitation anemia sad hyponatremia low albumin - Plan Plan: fall precautions continue current medications cpm
[2016-11-20] MEDS: risperiDONE 1 mg/mL 30 mL Bottle PO SCH (16:43)
--- NOTE | 2016-11-21 03:07 | Progress Notes ---
SUBJECTIVE: I met this patient, discussed with staff, chart is reviewed. Remains irritable, angry, still talking to herself, some agitation, requiring redirecting by staff. The patient continues to have episodes of refusing care. ASSESSMENT: The patient is still in psychotic phase. PLAN: We will continue stabilization. Continue medication management. The patient received Haldol Decanoate to help improve compliance. The patient is also on risperidone ____ we will monitor closely. JOB# [id number]
[2016-11-21] MEDS: Multivitamin Tab PO SCH (09:48)
[2016-11-21] MEDS ORDERED: Haloperidol Lactate 5 mg/mL 1mL Vial IM ONE (10:41)
--- NOTE | 2016-11-21 13:37 | Internal Medicine Prog Note ---
Internal Medicine Subjective - Subjective Service Date: 11/21/16 Patient seen and examined:: with staff Patient is:: awake Per staff patient is:: no adverse event Internal Medicine Objective - Physical Exam Vitals and I&O: Vital Signs Temp 0 F 11/21/16 06:35 Pulse 110 11/20/16 16:05 Resp 20 11/20/16 16:05 BP 154/85 11/20/16 16:05 Pulse Ox 99 11/20/16 16:05 Intake & Output 11/20/16 11/21/16 11/21/16 18:59 06:59 18:59 Intake Total 1100 120 Balance 1100 120 Intake: Oral 1100 120 Other: # Voids 3 3 # Bowel Movements 1 0 Stool Characteristics Soft Formed Active Medications: Current Medications Acetaminophen (Tylenol) 650 mg PO Q4HR PRN PRN Reason: Pain (Mild) Stop: 01/08/17 21:21 Al Hydrox/Mg Hydrox/Simethicone (Maalox) 30 ml PO Q6HR PRN PRN Reason: Constipation Stop: 01/08/17 21:21 Albuterol/Ipratropium (Duoneb Neb) 3 ml HHN Q2HR PRN PRN Reason: Shortness of Breath Stop: 01/08/17 21:17 Guaifenesin (Robitussin) 200 mg PO Q4HR PRN PRN Reason: Cough or Congestion Stop: 01/08/17 21:21 Lorazepam (Ativan) 1 mg PO Q4HR PRN; Protocol PRN Reason: Anxiety Stop: 01/14/17 15:59 Last Admin: 11/18/16 20:39 Dose: 1 mg Multivitamins/Vitamin C (Theragran) 1 tab PO DAILY KRAIG Stop: 01/09/17 08:59 Last Admin: 11/21/16 09:48 Dose: Not Given Quetiapine Fumarate (Seroquel) 50 mg PO BID KRAIG PRN Reason: Protocol Stop: 01/12/17 13:14 Last Admin: 11/21/16 09:48 Dose: Not Given Risperidone (Risperdal) 2 mg PO 1700 KRAIG PRN Reason: Protocol Stop: 01/18/17 13:36 Last Admin: 11/20/16 16:43 Dose: Not Given Zolpidem Tartrate (Ambien) 10 mg PO HS PRN PRN Reason: Insomnia Last Admin: 11/15/16 23:18 Dose: 10 mg General: alert HEENT: NC/AT, PERRLA Neck: Supple Lungs: CTAB Cardiovascular: RRR Abdomen: soft non-tender Extremities: clear Internal Medicine Assmt/Plan - Assessment Assessment: inc agitation anemia sad hyponatremia low albumin - Plan Plan: fall precautions continue current medications cpm
[2016-11-21] MEDS: risperiDONE 1 mg/mL 30 mL Bottle PO SCH (16:16)
[2016-11-22] MEDS: Multivitamin Tab PO SCH (08:49)
[2016-11-22] MEDS ORDERED: chlorproMAZINE 25 mg/mL 2mL Amp ONE (09:09)
[2016-11-22] MEDS ORDERED: chlorproMAZINE 25 mg/mL 2mL Amp IM STA (09:20)
--- NOTE | 2016-11-22 13:57 | Internal Medicine Prog Note ---
Internal Medicine Subjective - Subjective Patient seen and examined:: with staff, chart reviewed Patient is:: awake, interactive Per staff patient is:: no adverse event, confused Internal Medicine Objective - Physical Exam Vitals and I&O: Vital Signs Temp 98.0 F 11/21/16 14:00 Pulse 75 11/22/16 07:06 Resp 18 11/22/16 07:07 BP 141/58 11/21/16 14:00 Pulse Ox 98 11/22/16 07:06 Intake & Output 11/21/16 11/22/16 11/22/16 18:59 06:59 18:59 Intake Total 1000 120 Balance 1000 120 Intake: Oral 1000 120 Other 0 Other: # Voids 3 3 # Bowel Movements 1 Stool Characteristics Soft Soft Formed Formed Active Medications: Current Medications Acetaminophen (Tylenol) 650 mg PO Q4HR PRN PRN Reason: Pain (Mild) Stop: 01/08/17 21:21 Al Hydrox/Mg Hydrox/Simethicone (Maalox) 30 ml PO Q6HR PRN PRN Reason: Constipation Stop: 01/08/17 21:21 Albuterol/Ipratropium (Duoneb Neb) 3 ml HHN Q2HR PRN PRN Reason: Shortness of Breath Stop: 01/08/17 21:17 Guaifenesin (Robitussin) 200 mg PO Q4HR PRN PRN Reason: Cough or Congestion Stop: 01/08/17 21:21 Haloperidol Decanoate (Haldol Dec) 50 mg IM QMONTH KRAIG PRN Reason: Protocol Stop: 01/21/17 12:59 Lorazepam (Ativan) 1 mg PO Q4HR PRN; Protocol PRN Reason: Anxiety Stop: 01/14/17 15:59 Last Admin: 11/18/16 20:39 Dose: 1 mg Multivitamins/Vitamin C (Theragran) 1 tab PO DAILY KRAIG Stop: 01/09/17 08:59 Last Admin: 11/22/16 08:49 Dose: Not Given Risperidone (Risperdal) 2 mg PO 1700 KRAIG PRN Reason: Protocol Stop: 01/18/17 13:36 Last Admin: 11/21/16 16:16 Dose: Not Given Zolpidem Tartrate (Ambien) 10 mg PO HS PRN PRN Reason: Insomnia Last Admin: 11/15/16 23:18 Dose: 10 mg General: demented HEENT: NC/AT, PERRLA Neck: Supple, No JVD Lungs: CTAB Cardiovascular: RRR, Normal S1, Normal S2 Abdomen: soft non-tender, globular Extremities: excoriation Neurological: no change Internal Medicine Assmt/Plan - Assessment Assessment: inc agitation anemia sad hyponatremia' low albumin - Plan Plan: nutritional support correct lyrtes will check labs jordi blum
--- NOTE | 2016-11-22 15:00 | Progress Notes ---
SUBJECTIVE: I met this patient, discussed with staff, chart reviewed. Still angry, paranoid, irritable, still having episodes of yelling, required being given emergency medications this morning, the patient with episodes of refusing care. ASSESSMENT: The patient still in psychotic phase, still highly paranoid and agitated. PLAN: Continue hospitalization. Continue to monitor closely. Continue supportive measures, continue risperidone liquid 2 mg p.o. q. p.m. [facility]# [id number]
[2016-11-22] MEDS: risperiDONE 1 mg/mL 30 mL Bottle PO SCH (17:21)
--- NOTE | 2016-11-23 02:48 | Progress Notes ---
SUBJECTIVE: The patient was seen, discussed with staff, chart reviewed. Still paranoid, anxious, guarded, still agitated, talking to herself, responding to internal stimuli, argumentative, talking about people trying to hurt her, trying to follow her. ASSESSMENT: The patient still in psychotic phase. PLAN: We will continue stabilization, use Haldol Decanoate to help improve compliance. [facility]# [id number]
[2016-11-23] MEDS: Multivitamin Tab PO SCH (10:19)
--- NOTE | 2016-11-23 12:57 | Internal Medicine Prog Note ---
Internal Medicine Subjective - Subjective Service Date: 11/23/16 Patient seen and examined:: with staff Patient is:: awake Per staff patient is:: no adverse event Internal Medicine Objective - Physical Exam Vitals and I&O: Vital Signs Temp 98.0 F 11/21/16 14:00 Pulse 75 11/22/16 07:06 Resp 18 11/22/16 07:07 BP 141/58 11/21/16 14:00 Pulse Ox 98 11/22/16 07:06 Intake & Output 11/22/16 11/23/16 11/23/16 18:59 06:59 18:59 Intake Total 950 120 Balance 950 120 Weight (lbs) 142 lb 12.8 oz Intake: Oral 950 120 Other: # Voids 3 3 # Bowel Movements 1 Stool Characteristics Soft Formed Active Medications: Current Medications Acetaminophen (Tylenol) 650 mg PO Q4HR PRN PRN Reason: Pain (Mild) Stop: 01/08/17 21:21 Al Hydrox/Mg Hydrox/Simethicone (Maalox) 30 ml PO Q6HR PRN PRN Reason: Constipation Stop: 01/08/17 21:21 Albuterol/Ipratropium (Duoneb Neb) 3 ml HHN Q2HR PRN PRN Reason: Shortness of Breath Stop: 01/08/17 21:17 Guaifenesin (Robitussin) 200 mg PO Q4HR PRN PRN Reason: Cough or Congestion Stop: 01/08/17 21:21 Haloperidol Decanoate (Haldol Dec) 50 mg IM QMONTH KRAIG PRN Reason: Protocol Stop: 01/21/17 12:59 Last Admin: 11/22/16 16:42 Dose: 50 mg Lorazepam (Ativan) 1 mg PO Q4HR PRN; Protocol PRN Reason: Anxiety Stop: 01/14/17 15:59 Last Admin: 11/18/16 20:39 Dose: 1 mg Multivitamins/Vitamin C (Theragran) 1 tab PO DAILY KRAIG Stop: 01/09/17 08:59 Last Admin: 11/23/16 10:19 Dose: Not Given Risperidone (Risperdal) 2 mg PO 1700 KRAIG PRN Reason: Protocol Stop: 01/18/17 13:36 Last Admin: 11/22/16 17:21 Dose: Not Given Zolpidem Tartrate (Ambien) 10 mg PO HS PRN PRN Reason: Insomnia Last Admin: 11/15/16 23:18 Dose: 10 mg General: alert HEENT: NC/AT, PERRLA Neck: Supple Lungs: CTAB Cardiovascular: RRR, Normal S1, Normal S2, without murmur Abdomen: soft non-tender, non-distended Extremities: clear Internal Medicine Assmt/Plan - Assessment Assessment: inc agitation anemia sad hyponatremia low albumin - Plan Plan: fall precautions continue current medications cpm
[2016-11-23] MEDS: risperiDONE 1 mg/mL 30 mL Bottle PO SCH (17:25)
--- NOTE | 2016-11-23 21:53 | Progress Notes ---
SUBJECTIVE: The patient was seen is still angry, irritable, still easily agitated, restless at times talking to herself. The patient's insight remains poor, judgment remains impaired. She continues to have some episodes of refusing medications, refusing care. ASSESSMENT: The patient is still in psychotic phase. PLAN: Continue stabilization. The patient received Haldol Decanoate today. JOB# [id number]
[2016-11-24] MEDS: Multivitamin Tab PO SCH (09:12)
--- NOTE | 2016-11-24 12:03 | Internal Medicine Prog Note ---
Internal Medicine Subjective - Subjective Patient seen and examined:: with staff, chart reviewed Patient is:: awake, interactive Per staff patient is:: no adverse event, confused Internal Medicine Objective - Physical Exam Vitals and I&O: Vital Signs Temp 97.8 F 11/23/16 17:02 Pulse 96 11/23/16 17:02 Resp 20 11/23/16 20:00 BP 95/65 11/23/16 17:02 Pulse Ox 98 11/23/16 17:02 Intake & Output 11/23/16 11/24/16 11/24/16 18:59 06:59 18:59 Intake Total 1100 Balance 1100 Weight (lbs) 64.773 kg Intake: Oral 1100 Other: # Voids 3 2 # Bowel Movements 1 Active Medications: Current Medications Acetaminophen (Tylenol) 650 mg PO Q4HR PRN PRN Reason: Pain (Mild) Stop: 01/08/17 21:21 Al Hydrox/Mg Hydrox/Simethicone (Maalox) 30 ml PO Q6HR PRN PRN Reason: Constipation Stop: 01/08/17 21:21 Albuterol/Ipratropium (Duoneb Neb) 3 ml HHN Q2HR PRN PRN Reason: Shortness of Breath Stop: 01/08/17 21:17 Guaifenesin (Robitussin) 200 mg PO Q4HR PRN PRN Reason: Cough or Congestion Stop: 01/08/17 21:21 Haloperidol Decanoate (Haldol Dec) 50 mg IM QMONTH KRAIG PRN Reason: Protocol Stop: 01/21/17 12:59 Last Admin: 11/22/16 16:42 Dose: 50 mg Lorazepam (Ativan) 1 mg PO Q4HR PRN; Protocol PRN Reason: Anxiety Stop: 01/14/17 15:59 Last Admin: 11/18/16 20:39 Dose: 1 mg Multivitamins/Vitamin C (Theragran) 1 tab PO DAILY KRAIG Stop: 01/09/17 08:59 Last Admin: 11/24/16 09:12 Dose: Not Given Risperidone (Risperdal) 2 mg PO 1700 KRAIG PRN Reason: Protocol Stop: 01/18/17 13:36 Last Admin: 11/23/16 17:25 Dose: 2 mg Zolpidem Tartrate (Ambien) 10 mg PO HS PRN PRN Reason: Insomnia Last Admin: 11/15/16 23:18 Dose: 10 mg General: demented HEENT: NC/AT, PERRLA Neck: Supple, No JVD Lungs: CTAB Cardiovascular: RRR, Normal S1 Abdomen: soft non-tender, globular, positive bowel sound Extremities: excoriation Neurological: no change Internal Medicine Assmt/Plan - Assessment Assessment: inc agitation anemia sad hyponatremia' low albumin - Plan Plan: nutritional support correct lyrtes will check labs jordi blum
[2016-11-24] MEDS: risperiDONE 1 mg/mL 30 mL Bottle PO SCH (16:38)
--- NOTE | 2016-11-24 19:49 | Progress Notes ---
PSYCHIATRIC PROGRESS NOTE TIME PATIENT SEEN: 7:15 a.m. SUBJECTIVE: Staff was spoken to. The patient is interviewed. Mood is noted to be irritable. Affect is constricted. The patient continues to be very paranoid. Coping skills are noted to be extremely poor. The patient is isolative and withdrawn. The patient is currently on risperidone 2 mg at 5 p.m. and is also on Haldol Decanoate 50 mg IM monthly. The patient at this time is able to tolerate the medications, but continues to be isolative and withdrawn. No side effects to the medications are noted so far. ASSESSMENT: The patient is still psychotic. PLAN: To continue the patient with the current medications. I encouraged the patient to verbalize the concerns rather than to act out. JOB# [id number]
[2016-11-25] MEDS: Multivitamin Tab PO SCH (09:04)
--- NOTE | 2016-11-25 10:45 | Internal Medicine Prog Note ---
Internal Medicine Subjective - Subjective Patient seen and examined:: with staff, chart reviewed Patient is:: verbal Per staff patient is:: no adverse event, noncompliant, confused Internal Medicine Objective - Physical Exam Vitals and I&O: Vital Signs Temp 97.9 F 11/24/16 14:00 Pulse 96 11/24/16 14:28 Resp 18 11/24/16 14:00 BP 103/57 11/24/16 14:00 Pulse Ox 97 11/24/16 14:00 Intake & Output 11/24/16 11/25/16 11/25/16 18:59 06:59 18:59 Intake Total 360 Balance 360 Intake: Oral 360 Other: # Voids 4 1 # Bowel Movements 1 Active Medications: Current Medications Acetaminophen (Tylenol) 650 mg PO Q4HR PRN PRN Reason: Pain (Mild) Stop: 01/08/17 21:21 Al Hydrox/Mg Hydrox/Simethicone (Maalox) 30 ml PO Q6HR PRN PRN Reason: Constipation Stop: 01/08/17 21:21 Albuterol/Ipratropium (Duoneb Neb) 3 ml HHN Q2HR PRN PRN Reason: Shortness of Breath Stop: 01/08/17 21:17 Guaifenesin (Robitussin) 200 mg PO Q4HR PRN PRN Reason: Cough or Congestion Stop: 01/08/17 21:21 Haloperidol Decanoate (Haldol Dec) 50 mg IM QMONTH KRAIG PRN Reason: Protocol Stop: 01/21/17 12:59 Last Admin: 11/22/16 16:42 Dose: 50 mg Lorazepam (Ativan) 1 mg PO Q4HR PRN; Protocol PRN Reason: Anxiety Stop: 01/14/17 15:59 Last Admin: 11/25/16 09:00 Dose: 1 mg Multivitamins/Vitamin C (Theragran) 1 tab PO DAILY KRAIG Stop: 01/09/17 08:59 Last Admin: 11/25/16 09:04 Dose: Not Given Risperidone (Risperdal) 2 mg PO 1700 KRAIG PRN Reason: Protocol Stop: 01/18/17 13:36 Last Admin: 11/24/16 16:38 Dose: 2 mg Zolpidem Tartrate (Ambien) 10 mg PO HS PRN PRN Reason: Insomnia Last Admin: 11/15/16 23:18 Dose: 10 mg General: demented HEENT: NC/AT, PERRLA Neck: Supple, No JVD Lungs: CTAB Cardiovascular: RRR, Normal S1 Abdomen: soft non-tender, globular Extremities: excoriation Neurological: no change Internal Medicine Assmt/Plan - Assessment Assessment: inc agitation anemia sad hyponatremia' low albumin - Plan Plan: nutritional support correct lyrtes will check labs jordi blum
[2016-11-25] MEDS: risperiDONE 1 mg/mL 30 mL Bottle PO SCH (16:34)
--- NOTE | 2016-11-26 00:53 | Progress Notes ---
PSYCHIATRIC PROGRESS NOTE TIME PATIENT SEEN: 7:30 a.m. SUBJECTIVE: Staff was spoken to. The patient is interviewed. Mood is noted to be irritable. Affect is constricted. Insight and judgment at this time are noted to be still impaired. Impulse control seems to be poor. Coping skills are also noted to be poor. The patient is screaming and yelling and stating that she is a doctor and she should not be taking any medications. The patient has no insight into her illness. ASSESSMENT: The patient is grossly psychotic. PLAN: To continue the patient with the current medications. I encouraged the patient to verbalize the concerns rather than to act out. The patient is still a grossly psychotic and continue the patient with Risperdal and Haldol and followup. JOB# [id number]
[2016-11-26] MEDS: Multivitamin Tab PO SCH (10:09)
--- NOTE | 2016-11-26 13:41 | Internal Medicine Prog Note ---
Internal Medicine Subjective - Subjective Patient seen and examined:: with staff, chart reviewed Patient is:: awake, interactive Per staff patient is:: no adverse event, noncompliant, confused Internal Medicine Objective - Physical Exam Vitals and I&O: Vital Signs Temp 0 F 11/26/16 06:38 Pulse 91 11/25/16 15:06 Resp 20 11/25/16 15:06 BP 114/51 11/25/16 15:06 Pulse Ox 96 11/25/16 15:06 Intake & Output 11/25/16 11/26/16 11/26/16 18:59 06:59 18:59 Intake Total 800 120 Balance 800 120 Intake: Oral 800 120 Other: # Voids 4 3 # Bowel Movements 1 0 Stool Characteristics Soft Formed Active Medications: Current Medications Acetaminophen (Tylenol) 650 mg PO Q4HR PRN PRN Reason: Pain (Mild) Stop: 01/08/17 21:21 Al Hydrox/Mg Hydrox/Simethicone (Maalox) 30 ml PO Q6HR PRN PRN Reason: Constipation Stop: 01/08/17 21:21 Albuterol/Ipratropium (Duoneb Neb) 3 ml HHN Q2HR PRN PRN Reason: Shortness of Breath Stop: 01/08/17 21:17 Guaifenesin (Robitussin) 200 mg PO Q4HR PRN PRN Reason: Cough or Congestion Stop: 01/08/17 21:21 Haloperidol Decanoate (Haldol Dec) 50 mg IM QMONTH KRAIG PRN Reason: Protocol Stop: 01/21/17 12:59 Last Admin: 11/22/16 16:42 Dose: 50 mg Lorazepam (Ativan) 1 mg PO Q4HR PRN; Protocol PRN Reason: Anxiety Stop: 01/14/17 15:59 Last Admin: 11/25/16 09:00 Dose: 1 mg Multivitamins/Vitamin C (Theragran) 1 tab PO DAILY KRAIG Stop: 01/09/17 08:59 Last Admin: 11/26/16 10:09 Dose: Not Given Risperidone (Risperdal) 2 mg PO 1700 KRAIG PRN Reason: Protocol Stop: 01/18/17 13:36 Last Admin: 11/25/16 16:34 Dose: 2 mg Zolpidem Tartrate (Ambien) 10 mg PO HS PRN PRN Reason: Insomnia Last Admin: 11/15/16 23:18 Dose: 10 mg General: demented HEENT: NC/AT, PERRLA Neck: Supple, No JVD Lungs: CTAB Cardiovascular: RRR, Normal S1, Normal S2 Abdomen: soft non-tender, hepatomegaly Extremities: excoriation Neurological: no change Internal Medicine Assmt/Plan - Assessment Assessment: inc agitation anemia sad hyponatremia' low albumin - Plan Plan: nutritional support correct lyrtes will check labs jordi blum
[2016-11-26] MEDS: risperiDONE 1 mg/mL 30 mL Bottle PO SCH (18:03)
--- NOTE | 2016-11-26 20:15 | Discharge Summary ---
REASON FOR HOSPITALIZATION: Schizoaffective disorder, psychotic phase. HISTORY OF PRESENT ILLNESS: The patient is a 66-year-old female with chronic history of mental illness, was sent from her skilled nursing facility for increased agitation, paranoia and altered level of consciousness, was initially on the medical floor, then transferred to geriatric psychiatric hospitalization. The patient has been refusing medications and refusing care. The patient was admitted. HOSPITALIZATION COURSE: The patient was noted to be very paranoid, having yelling episodes and episodes of attempting to hit staff. The patient's compliance was an issue. The patient responded favorably well when she received Haldol Decanoate. Paranoia decreased, agitation resolved. The patient on 11/26/2016, was discharged back to her facility. The patient was not suicidal or homicidal. Her compliance improved. Her sleep and appetite was fair and her vital signs were stable. FINAL DIAGNOSES: Schizoaffective disorder, bipolar type, COPD, hypertension, generalized weakness, history of hyponatremia, low albumin and anemia. CONDITION ON DISCHARGE: Improved. No agitation. Fair sleep and appetite. No suicidal or homicidal thoughts. DISPOSITION: The patient was discharged back to her skilled nursing facility. EXPECTED COURSE OF RECOVERY: Fair with proper supportive management. JOB# [id number]
== END 2016-11-26 21:21 | DRG 885 ==
LOC: GERO 15:38
DX: F25.0 Schizoaffective disorder, bipolar type (principal); E87.1 Hypo-osmolality and hyponatremia; I10 Essential (primary) hypertension; D64.9 Anemia, unspecified; F29 Unspecified psychosis not due to a substance or known physiological condition; J44.9 Chronic obstructive pulmonary disease, unspecified; Z91.14 Patient's other noncompliance with medication regimen; E88.09 Other disorders of plasma-protein metabolism, not elsewhere classified
CPT/HCPCS: 94760; J1200; J1630; J1631; J2060; J3230; Z7610